=== PATIENT | female | born 1995 | race Caucasian/White ===

== ENCOUNTER 2019-01-12 22:44 | Emergency (ER) | payer BC, OTHER ==
[~2019-01-12] VITALS: Ht 160 cm; Wt 74.8 kg
--- NOTE | 2019-01-12 22:50 | NUR ---
to bed 5 c/o generalized weakness with nausea. pt aaox4 no acute disrtess noted, resp even and unlabored. place pt on cardiac monitoring, continuous pox. pupils perrla, pt able to move all extremities well with bilateral equal relationship executive. pending er md rockwell.
[2019-01-12] MEDS ORDERED: ONDANSETRON HCL/PF 4 MG/2 ML VIAL ONE (23:18)
[2019-01-12 23:20] LABS: BASOPHILS # (AUTO) 0.1 /CMM (0.0-0.2); BASOPHILS % (AUTO) 0.7 % (0.0-2.0); EOSINOPHILS % (AUTO) 3.4 % (0.0-6.0); HEMATOCRIT 43 % (33-45); HEMOGLOBIN 14.5 g/dL (11.5-14.8); LYMPHOCYTES % (AUTO) 32.6 % (20.0-44.0); MEAN CORPUSCULAR HGB CONC 34 g/dl (31.0-36.0); MEAN CORPUSCULAR VOLUME 88 fL (82-100); MONOCYTES # (AUTO) 0.6 /CMM (0.1-1.30); MONOCYTES % (AUTO) 6.1 % (2.0-12.0); NEUTROPHILS # (AUTO) 5.2 /CMM (1.8-8.9); NEUTROPHILS % (AUTO) 57.2 % (43.0-81.0); PLATELET COUNT (AUTO) 312 /CMM (150-450); RED BLOOD CELL COUNT(AUTO) 4.95 MIL/uL (4.0-5.2); WHITE BLOOD COUNT (AUTO) 9.1 K/uL (4.3-11.0)
[2019-01-12 23:27] LABS: CALCIUM, SERUM 9.6 mg/dL (8.5-10.1); CARBON DIOXIDE 26 mmol/L (21-32); CHLORIDE 101 mmol/L (98-107); GLUCOSE 100 mg/dL (74-106); POTASSIUM 3.8 mmol/L (3.5-5.1); SODIUM SERUM 138 mmol/L (136-145); UREA NITROGEN, BLOOD 11 mg/dL (7-18)
[2019-01-12] MEDS ORDERED: IV NS 0.9% 1,000 ML BAG IV ONE (23:30)
[2019-01-12] MEDS ORDERED: ONDANSETRON HCL/PF 4 MG/2 ML VIAL IV ONE (23:30)
--- NOTE | 2019-01-12 23:30 | NUR ---
pt medicated per er md order.
--- NOTE | 2019-01-13 | NUR ---
pt reasting quietly, no acute distress noted, resp even and unlabored. will continue to monitor pt closely.
[2019-01-13 00:02] LABS: T4 (THYROXINE) 11.3 ug/dL (4.7-13.3); THYROID STIMULATING HORMONE 1.561 uIU/mL (0.358-3.74)
[2019-01-13] MEDS ORDERED: LORAZEPAM INJ 2 MG/ML VIAL ONE (00:21)
[2019-01-13] MEDS ORDERED: LORAZEPAM INJ 2 MG/ML VIAL IV ONE (00:30)
--- NOTE | 2019-01-13 01:42 | NUR ---
pt asleep, easily arousable, no acute distress noted, resp even and unlabored. call light within reach. will continue to monitor pt closely.
--- NOTE | 2019-01-13 02:45 | NUR ---
IV removed. Catheter intact and site benign. Pressure and 4x4 applied to site. No bleeding noted. Patient discharged to home in stable condition. Written and verbal after care instructions given. Patient verbalizes understanding of instruction. ambulatory with a steady gait noted. pt s/o at bedside to take pt home. advice pt not to drive or operate any machinery due to pt was given ativan. pt verbalize understanding. pt brother at bedside to take pt home.
[2019-01-13 02:46] VITALS: BP 143/91
== END 2019-01-13 02:49 | disposition home or self-care (01) ==
LOC: ER 22:48
DX: R53.1 Weakness (principal); Z90.89 Acquired absence of other organs; R11.10 Vomiting, unspecified
CPT/HCPCS: 36415; 71045; 80048; 84436; 84443; 84484; 85025; 93005; 96361; 96374; 96375; 99284; J2060; J2405; J7030